=== PATIENT | female | born 1940 | race Caucasian/White ===

== ENCOUNTER → 2018-06-28 | Outpatient (CLI) | payer MEDICARE, BC ==
--- NOTE | 2018-06-28 12:52 | RAD ---
EXAM: Lumbar spine, 5 views; thoracic spine, 3 views. HISTORY: Pain. COMPARISON: None. FINDINGS: Thoracic spine: Frontal, lateral and swimmer's views of the thoracic spine are obtained. There is degenerative endplate remodeling with anterior spurring at the mid thoracic levels. There is no fracture. There is no listhesis. There is minimal S-shaped thoracic curvature. Lumbar spine: Frontal, lateral, bilateral oblique and coned sacral views of the lumbar spine are obtained. There is mild levoscoliosis centered at L3. There is no listhesis. The vertebral bodies are normal in height. There is degenerative endplate remodeling with disc space narrowing predominantly at L3-L4. There is facet arthropathy at all levels. There is an abdominal aortic aneurysm measuring 3.9 cm radiographically. IMPRESSION: 1. 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 2. Mild lumbar levoscoliosis and S-shaped thoracic curvature. 3. Abdominal aortic aneurysm. Electronically signed by: Savanna Galvan MD (06/28/2018 12:48 PM) [email or web address]
== END | disposition home or self-care (01) ==
LOC: DXRAD 12:03
PROVIDERS: ATTEND Physician Assistant Medical
DX: M47.895 Other spondylosis, thoracolumbar region (principal); M48.061 Spinal stenosis, lumbar region without neurogenic claudication; M43.8X4 Other specified deforming dorsopathies, thoracic region; M41.86 Other forms of scoliosis, lumbar region; M12.88 Other specific arthropathies, not elsewhere classified, other specified site; I71.4 Abdominal aortic aneurysm, without rupture
CPT/HCPCS: 72072; 72110

== ENCOUNTER → 2021-02-05 | Outpatient (CLI) | payer MEDICARE, BC ==
--- NOTE | 2021-02-05 09:19 | RAD ---
Left knee 3 views. HISTORY: Left knee pain 3 views were taken of the left knee. There is not evidence of an acute fracture or osseous abnormalit y or joint effusion. There is anterior soft tissue swelling. IMPRESSION: 1. Soft tissue swelling. 2. No fracture or acute osseous abnormality in the left knee. Electronically signed by: Maxime Hernandez MD (02/05/2021 9:16 AM) [id number]
== END ==
LOC: RAD 08:44
PROVIDERS: ATTEND Nurse Practitioner Family
DX: S89.92XA Unspecified injury of left lower leg, initial encounter (principal); M79.89 Other specified soft tissue disorders; X58.XXXA Exposure to other specified factors, initial encounter; Y93.89 Activity, other specified; Y92.89 Other specified places as the place of occurrence of the external cause; Y99.8 Other external cause status
CPT/HCPCS: 73562

== ENCOUNTER → 2021-07-16 | Outpatient (CLI) | payer MEDICARE, BC ==
--- NOTE | 2021-07-21 10:06 | RAD ---
Bilateral digital screening mammogram to include digital breast tomosynthesis (3-D mammography) 07/16 CLINICAL HISTORY: Screening study. Digital MLO and CC mammograms of both breasts were obtained. Additionally digital breast tomosynthesi s images (3-D mammography) of both breasts in the CC and MLO projections were obtained. Comparison study is dated 07/11/2018. The breast parenchyma is heterogeneously dense which could obscure a lesion on mammography (breast de nsity C). Benign-appearing calcifications are seen within both breasts. No spiculated mass is seen. N o malignant appearing calcification or area of architectural distortion is noted. Digital breast tomosynthesis images demonstrate no spiculated mass. No malignant appearing calcificat ion is seen. Impression: BI-RADS Category 1: Negative. There is no mammographic evidence of malignancy. Routine y early screening mammography is recommended for follow-up. This examination was reviewed with the aid of computer-aided detection. A mammogram does not have 100% sensitivity and therefore a negative imaging study should not delay fu rther work up of a suspicious abnormality. Patient information is entered into the reminder system with a target due date for the next screening mammogram of 07/16/2022. "Our facility is accredited by the [employer] Mammography Program." Electronically signed by: Rory Carter MD (07/21/2021 10:04 AM) [facility]
== END ==
LOC: MAMMO 09:39
PROVIDERS: ATTEND Physician Assistant
DX: Z12.31 Encounter for screening mammogram for malignant neoplasm of breast (principal)
CPT/HCPCS: 77063; 77067